=== PATIENT | male | born 1990 | race African-American/Black ===

== ENCOUNTER 2021-11-18 12:29 | Emergency (ER) | payer OTHER ==
[~2021-11-18] VITALS: Ht 182.9 cm; Wt 79.4 kg
[~2021-11-18 12:29] MED LIST: COLACE100 MG PO; NORCO 5-325 TA1 EACH PO; PROCTOFOAM15 GM TP; [UNRECOGNIZED DRUG - REMARK]
[2021-11-18 12:33] VITALS: BP 123/65
[2021-11-18] MEDS ORDERED: PROCTOFOAM-HC F10 GM RECTAL (12:56)
== END 2021-11-18 13:04 | disposition home or self-care (01) ==
LOC: ER 12:29
DX: K64.4 Residual hemorrhoidal skin tags (principal); F17.210 Nicotine dependence, cigarettes, uncomplicated